=== PATIENT | male | born 1995 | race Two or more races ===

== ENCOUNTER 2024-11-22 11:57 | Emergency (ER) | payer OTHER ==
[~2024-11-22] VITALS: Ht 170.2 cm; Wt 85.7 kg
[2024-11-22] MEDS ORDERED: MAG HYDROX/AL HYDROX/SIMETH 30 ML UDC ONE (12:45)
[2024-11-22] MEDS ORDERED: PANTOPRAZOLE 40 MG TABLET.DR PO ONE (12:46)
[2024-11-22] MEDS ORDERED: ESOM20CA PO (12:47)
[2024-11-22] MEDS: PANTOPRAZOLE 40 MG TABLET.DR PO ONE (12:49)
[2024-11-22] MEDS: MAG HYDROX/AL HYDROX/SIMETH 30 ML UDC PO ONE (12:49)
[2024-11-22 13:26] VITALS: BP 125/80; TEMP 98.5; O2SAT 99
== END 2024-11-22 13:26 | disposition home or self-care (01) ==
LOC: ER 12:03
DX: R10.13 Epigastric pain (principal); F15.10 Other stimulant abuse, uncomplicated

== ENCOUNTER 2025-01-26 11:12 | Emergency (ER) | payer OTHER ==
[~2025-01-26] VITALS: Ht 170.2 cm; Wt 83.6 kg
[~2025-01-26 11:12] MED LIST: ESOM20CA PO
[2025-01-26 11:29] VITALS: BP 120/71; TEMP 98.5; O2SAT 98
[2025-01-26] MEDS ORDERED: AMOX500C2 PO (11:37)
[2025-01-26] MEDS ORDERED: AMOXICILLIN TRIHYDRATE 250 MG CAPSULE ONE (11:42)
[2025-01-26] MEDS ORDERED: IBUPROFEN 600 MG TABLET ONE (11:42)
[2025-01-26] MEDS: AMOXICILLIN TRIHYDRATE 500 MG CAPSULE PO ONE (11:47)
[2025-01-26] MEDS: IBUPROFEN 600 MG TABLET PO ONE (11:48)
== END 2025-01-26 11:56 | disposition home or self-care (01) ==
LOC: ER 11:27
DX: K08.89 Other specified disorders of teeth and supporting structures (principal); F15.10 Other stimulant abuse, uncomplicated